=== PATIENT | male | born 1955 | race Caucasian/White ===

== ENCOUNTER → 2020-09-15 20:27 | Outpatient (CLI) | payer MEDICARE ==
[2020-05-20 12:56] VITALS: BMI 39.6
[~2020-09-15 20:27] MED LIST: BACLOFEN20 M1 PO; BAYER CHEWABLE81 MG PO; BUPROPION XL300 MG PO; CELEXA40 MG PO; CENTRUM MEN'S1 EACH PO; FAMOTIDINE10 MG PO; FENOFIBRATE54 MG PO; FISH OIL 1,0001 CA1 PO; FLOMAX0.4 MG PO; GABAPENTIN300 MG PO; HYDROCODON-ACE1 EAC7 PO; HYDROXYCHLOROQ200 MG PO; LEXAPRO20 MG PO; LIPITOR10 MG PO; LISINOPRIL20 MG PO; NORVASC5 MG PO; PEPCID40 MG PO; PROAIR HFA8.5 G1 INH; RELAFEN750 MG PO; TRAZODONE HCL50 MG PO; TRELEGY ELLIPT1 EACH INH; ULTRAM50 MG PO; ZYLOPRIM300 MG PO
[2020-09-15 22:08] LABS: MACROPHAGES BF 22 %; MESOTHELIALS BF 4 %; NEUT - BF 25 %
[2020-09-16 09:37] LABS: PROTEIN - BODY FLUID 3.4 G/DL
== END | disposition home or self-care (01) ==
LOC: D.LABREF 20:27
PROVIDERS: ATTEND Orthopaedic Surgery
DX: S81.001A Unspecified open wound, right knee, initial encounter (principal)

== ENCOUNTER 2020-09-30 10:41 | Day surgery (SDC) | payer MEDICARE ==
[~2020-09-30] VITALS: Ht 180.3 cm; Wt 127.0 kg
--- NOTE | ~2020-09-30 | OP ---
PATIENT NAME: PRECIOUS BROTHERS MEDICAL RECORD: [id number] :53 LOCATION:[facility] ADMISSION DATE: SURGEON: MALIK TRAN MD DATE OF OPERATION: 09/30/2020 PREOPERATIVE DIAGNOSES: 1. Surgical wound dehiscence, right knee. 2. Superficial wound infection, right knee. POSTOPERATIVE DIAGNOSES: 1. Surgical wound dehiscence, right knee. 2. Superficial wound infection, right knee. PROCEDURE PERFORMED: 1. Incision and debridement, right knee wounds (skin and subcutaneous tissue). 2. Closure of complex wounds, right knee (7 cm). INDICATIONS FOR THE PROCEDURE: Mr. 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 He has done well postoperatively, but still has a couple of areas along his incision that had failed to completely heal. They are draining serosanguineous fluid. He has also had some swelling in the knee, but denies any history of fevers or other problems. Knee aspiration was performed in clinic and the cell count was within normal limits. The Gram stain showed bacteria, but failed to grow anything on culture. I believe these are mostly superficial, but there is a chance he could have a deep infection. Arrangements were made for him to come to the operating room today for superficial debridement of these wounds with wound closure. If he continues to have problems, he may require removal of the knee components with antibiotic spacer. Risks, benefits and alternatives of surgery were discussed with the patient and consent was obtained. DESCRIPTION OF THE PROCEDURE: The patient was met in the holding area where his identity and confirmation of procedure was performed. The right lower extremity was marked. He was taken to the operating room where he was placed supine on the operating table and anesthesia was administered. A tourniquet was applied to the right leg and the right leg was prepped and draped in a sterile fashion. The patient received preoperative antibiotics and timeout was performed prior to initiating the case. On initiation of the case, the wounds were explored, did not appear to have any deep fluid collection. The wounds along the proximal incision more elliptically excised. It only involved the skin and subcutaneous tissue. There was no evidence of deep infection. The wound distally was dehisced 1-2 mm and that was also elliptically excised and again did not appear to have any deep involvement. These were irrigated thoroughly with saline. Cultures were obtained from the distal wound. The wounds were then closed with nylon suture. The 2 proximal wounds were 1.5 cm each and the distal wound measured 4 cm. Total length of closure equaled 7 cm. Once the wounds were closed, a sterile dressing was applied. The patient was turned back over to anesthesia where he was awakened and taken to recovery room in stable condition. POSTOPERATIVE PLAN: The patient is going to return home with his family today. He is to keep those incisions clean and dry. We will place him on doxycycline twice daily for 10 days. Plan to see him back in clinic in 2 weeks. COMPLICATIONS: None. OPERATIVE REPORT [id number] PRECIOUS BROTHERS ESTIMATED BLOOD LOSS: 10 mL. ANESTHESIA: General. TRANSINT:[id number] Voice Confirmation ID: [id number] DOCUMENT ID: [id number] MALIK TRAN MD CC: [id number] DICTATION DATE: 09/30/20 1536 UPPER CUTTER MACHINE: 09/30/201929 [facility] 09/30/20 [facility] [address] [place] [address]
[2020-09-30 13:59] VITALS: BP 154/63; Ht 180.3 cm; Wt 127.0 kg
[2020-09-30 14:43] LABS: BASOPHILS 1.1 % (0-2); EOSINOPHILS 3.7 % (0-7); HEMATOCRIT 44.9 % (42.0-54.0); HEMOGLOBIN 14.9 g/dL (13.5-17.5); MCH 34.2 pg (26.0-34.0); MCHC 33.2 g/dL (31.0-37.0); MCV 103.1 fL (80.0-100.0); MEAN PLATELET VOLUME 9.1 fL (7.4-10.4); MONOCYTES 7.7 % (2-11); NEUTROPHILS 67.5 % (40-80); PLATELET COUNT 207 10x3/uL (130-400); RBC 4.35 10x6/uL (4.20-6.10); RDW 14.5 % (11.5-14.5); WBC 8.1 10x3/uL (4.8-10.8)
[2020-09-30 14:53] LABS: CALC OSMOLALITY 279 mosm/kg (275-300); CALCIUM 9.8 mg/dL (8.5-10.1); CARBON DIOXIDE 27.2 mmol/L (21.0-32.0); CHLORIDE - SERUM 103 mmol/L (98-107); CREATININE - SERUM 0.8 mg/dL (0.6-1.3); GLUCOSE 82 mg/dL (74-106); POTASSIUM - SERUM 5.3 mmol/L (3.5-5.1); SODIUM 139 mmol/L (136-145); UREA NITROGEN 20 mg/dL (7-18); eGFR NON AFRICAN AMERICAN > 90 mL/min (90-120)
--- NOTE | 2020-09-30 17:24 | NUR ---
DISCHARGED VIA W/C, ACCOMPANIED BY LALI LAY, TO [facility] WITH SPOUSE DRIVING. ALL BELONGINGS ALREADY WITH SPOUSE.
[2020-09-30 18:28] LABS: ERYTHROCYTE SEDIMENTATION RATE 7 mm/hr (0-20)
== END 2020-09-30 17:24 | disposition home or self-care (01) ==
LOC: D.OPS 10:41
PROVIDERS: Anesthesiology; ATTEND Orthopaedic Surgery
DX: M25.561 Pain in right knee (principal); Z96.651 Presence of right artificial knee joint; T81.30XD Disruption of wound, unspecified, subsequent encounter